=== PATIENT | male | born 1950 | race Caucasian/White ===

== ENCOUNTER → 2022-02-04 10:46 | Outpatient (CLI) | payer MEDICARE, OTHER, SELFPAY ==
--- NOTE | 2022-02-04 10:50 | DI.RAD.S_ITS ---
PROCEDURE: XR RIBS RT MIN 3V W CXR 1V INDICATIONS: R lateral/anterior rib pain, r/o fx TECHNIQUE: 2 views of the right ribs were acquired, along with a single view chest. COMPARISON: [facility], CR, CHEST 2VW, 04/02/2015, 13:54. [facility], CR, XR CHEST 1VW (PORTABLE), 05/13/2015, 17:21. FINDINGS: Surgical changes and devices: Median sternotomy wires are present and appear intact. Status post cardiac valve replacement. Surgical clips in the right upper abdomen as before. Surgical clips in the lower right neck. Bones and chest wall: No acute displaced rib fractures seen. Remainder of the visualized osseous structures appear intact. No suspicious bony lesions. Overlying soft tissues appear unremarkable. Lungs and pleura: Eventration of the right hemidiaphragm, stable. Minimal patchy left basilar opacities favored to represent atelectasis. Stable subcentimeter peripheral left lung pulmonary granuloma. Mediastinum: Mediastinal contours appear normal. Heart size is normal. IMPRESSION: 1. Chest without acute cardiopulmonary abnormalities. No focal airspace disease. 2. No radiographic evidence for acute, displaced right-sided rib fractures. Dictated by: Ayan Betancourt M.D. on 02/04/2022 at 12:18 Approved by: Ayan Betancourt M.D. on 02/04/2022 at 12:22
== END ==
PROVIDERS: Referring Provider Physician Assistant; Visit Provider Physician Assistant
DX: S29.9XXA Unspecified injury of thorax, initial encounter (principal); X58.XXXA Exposure to other specified factors, initial encounter
CPT/HCPCS: 71101